=== PATIENT | male | born 1950 | race Caucasian/White ===

== ENCOUNTER 2020-04-02 09:51 | Emergency (ER) | payer MEDICARE, OTHER ==
[2020-04-02] MEDS ORDERED: Proparacaine 0.5% Ophth Soln 15 ML Bottle EYELF PRN (10:00)
[2020-04-02] MEDS ORDERED: Fluorescein 1 MG Ophth Strip EYELF ONE (10:01)
[2020-04-02 10:02] VITALS: BP 124/67; PULSE 71
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
[2020-04-02] MEDS ORDERED: Erythromycin Base 0.5% Ophth Oint 3.5 GM Tube EYELF ONE (10:33)
== END 2020-04-02 10:49 | disposition home or self-care (01) ==
LOC: VM.ED 09:51
DX: S05.02XA Injury of conjunctiva and corneal abrasion without foreign body, left eye, initial encounter (principal); E78.00 Pure hypercholesterolemia, unspecified; M19.90 Unspecified osteoarthritis, unspecified site; F41.9 Anxiety disorder, unspecified; F32.9 Major depressive disorder, single episode, unspecified; Q05.9 Spina bifida, unspecified; Z79.82 Long term (current) use of aspirin; Z79.899 Other long term (current) drug therapy; X58.XXXA Exposure to other specified factors, initial encounter
CPT/HCPCS: 99283; A9270-GY

== ENCOUNTER 2023-08-31 10:45 | Emergency (ER) | payer MEDICARE ==
[2023-08-31 11:06] VITALS: BP 148/80; PULSE 88
== END 2023-08-31 12:19 | disposition home or self-care (01) ==
LOC: VM.ED 10:45
DX: S30.0XXA Contusion of lower back and pelvis, initial encounter (principal); Z79.899 Other long term (current) drug therapy; Z79.82 Long term (current) use of aspirin; W10.9XXA Fall (on) (from) unspecified stairs and steps, initial encounter
CPT/HCPCS: 72100; 99283

== ENCOUNTER 2025-05-21 20:37 | Emergency (ER) | payer OTHER, MEDICARE ==
[2025-05-21] MEDS: Lidocaine 2% with EPINEPHrine 1:100,000 20 ML MDV INJECT ONE (21:10)
[2025-05-21] MEDS: Diphtheria,Pertussis(Acell),Tetanus Vaccine 0.5 ML Syringe IM ONE (21:14)
[2025-05-21 23:28] VITALS: BP 125/69; PULSE 77
== END 2025-05-21 21:31 | disposition home or self-care (01) ==
LOC: VM.ED 20:37
DX: S61.511A Laceration without foreign body of right wrist, initial encounter (principal); Z23 Encounter for immunization; Z79.82 Long term (current) use of aspirin; Z79.899 Other long term (current) drug therapy; W45.8XXA Other foreign body or object entering through skin, initial encounter
CPT/HCPCS: 12002; 90471; 90715; 99282-25; 99283; J2004